=== PATIENT | female | born 2000 | race Caucasian/White ===

== ENCOUNTER 2024-02-01 22:43 | Emergency (ER) | payer OTHER ==
[~2024-02-01] VITALS: Ht 157.5 cm; Wt 68.2 kg
[2024-02-01 22:52] VITALS: TEMP 98.2
[2024-02-01] MEDS ORDERED: CRUTCHES MC (23:18)
[2024-02-01 23:21] VITALS: BP 129/71; PULSE 78
== END 2024-02-01 23:36 | disposition home or self-care (01) ==
LOC: COL.ER 22:43
DX: S93.402A Sprain of unspecified ligament of left ankle, initial encounter (principal); F17.290 Nicotine dependence, other tobacco product, uncomplicated; X50.1XXA Overexertion from prolonged static or awkward postures, initial encounter

== ENCOUNTER 2024-05-23 11:28 | Emergency (ER) | payer SELFPAY ==
[~2024-05-23] VITALS: Ht 157.5 cm; Wt 68.2 kg
[~2024-05-23 11:28] MED LIST: CRUTCHES MC
[2024-05-23 11:32] VITALS: TEMP 97.9
[2024-05-23] MEDS ORDERED: PREDNISONE20 MG PO (13:11)
[2024-05-23 13:55] VITALS: BP 106/75; PULSE 73
== END 2024-05-23 13:59 | disposition home or self-care (01) ==
LOC: COL.ER 11:28
DX: J03.90 Acute tonsillitis, unspecified (principal)